=== PATIENT | male | born 1945 | race Caucasian/White ===

== ENCOUNTER 2016-10-29 07:58 | Day surgery (SDC) | payer MEDICARE ==
[~2016-10-29 07:58] MED LIST: IV START KIT ONE; SODIUM CHLORIDE 0.9% 1,000 ML ONE
[2016-10-29] MEDS ORDERED: CIPROFLOXACIN IV 400 MG 200 ML IV PRN (08:00)
[2016-10-29] MEDS ORDERED: GENTAMICIN SULFATE 320 MG in SODIUM CHLORIDE 0.9% 100 ML IV PRN (08:00)
[2016-10-29] MEDS ORDERED: BUPIVACAINE 0.5% (PRES FREE) 30 ML VIAL ONE (09:35)
[2016-10-29] MEDS ORDERED: SPINAL PROCEDURAL TRAY 1 EACH ONE (09:42)
[2016-10-29] MEDS ORDERED: BUPIVACAINE 0.75% SPINAL AMPUL 2 ML ONE (09:42)
[2016-10-29] MEDS ORDERED: LABETALOL HCL 5 MG/ML 20ML VIAL IV PRN (10:25)
[2016-10-29] MEDS ORDERED: NALOXONE HCL 0.4 MG/ML VIAL IV PRN ×2 (10:25→11:33)
[2016-10-29] MEDS ORDERED: ATROPINE SULFATE 0.4 MG/1 ML VIAL IV PRN ×2 (10:25→11:33)
[2016-10-29] MEDS ORDERED: ONDANSETRON 4 MG/2ML 2 ML VIAL IV PRN ×3 (10:25→11:33)
[2016-10-29] MEDS ORDERED: MEPERIDINE 25 MG/ML SYRINGE IV PRN ×2 (10:25→11:33)
[2016-10-29] MEDS ORDERED: PROMETHAZINE HCL 25 MG/ML VIAL IM PRN ×2 (10:25→11:33)
[2016-10-29] MEDS ORDERED: MORPHINE SULFATE 4 MG/ML SYRINGE IV PRN ×2 (10:25→11:33)
[2016-10-29] MEDS ORDERED: LACTATED RINGERS 1,000 ML IV SCH ×2 (10:30→11:45)
[2016-10-29] MEDS ORDERED: LACTATED RINGERS 1,000 ML ONE (10:52)
[2016-10-29] MEDS ORDERED: MORPHINE SULFATE 2 MG/ML SYRINGE IV PRN (11:31)
[2016-10-29] MEDS ORDERED: HYDROCODONE/ACETAMINOPHEN 5/325MG TABLET PO PRN (11:31)
[2016-10-29] MEDS ORDERED: HYDRALAZINE HCL 20 MG/1 ML VIAL IV PRN (11:33)
[2016-10-29] MEDS ORDERED: SIMETHICONE 80 MG TAB.CHEW PO ONE (13:25)
--- NOTE | 2016-10-29 13:31 | OP ---
MARGIE GALINDO [id number] DATE OF OPERATION: October 29, 2016 SURGEON: Lewis Valdivia M.D. PRESIDENT OF THE [place]: None. ANESTHESIA: Spinal. PREOPERATIVE DIAGNOSES: 1. Neuropathic detrusor dysfunction with urinary retention. 2. Acute renal failure. 3. History of urosepsis. POSTOPERATIVE DIAGNOSES: 1. Neuropathic detrusor dysfunction with urinary retention. 2. Acute renal failure. 3. History of urosepsis PROCEDURES: 1. CYSTOSCOPY. 2. CYSTOTOMY. 3. SUPRAPUBIC CYSTOSTOMY TUBE DRAINAGE. SPECIMENS: None. INDICATIONS: A 71-year-old man with a history of urosepsis in May of 2016 at which time two liters of retained urine was found with bilateral hydronephrosis and acute renal failure. His condition improved with antibiotics and a Coyne catheter. He has a long antecedent history of lower urinary tract symptoms. At cystoscopy, a 3.5 cm, at least, bladder outlet obstruction on the basis of prostatic enlargement was identified with at least a mild degree of trabeculation of the bladder wall. He failed voiding trials and intermittent self-catheterization also failed, and he ended up having to be re-catheterized. Urodynamic studies at that point confirmed probable neuropathic detrusor dysfunction as well as the presence of moderate to high grade bilateral vesicoureteral reflux. He presents now for cystostomy tube placement. FINDINGS: The urethra is notable for irritation from an indwelling Coyne catheter. Prostatic fossa is 3.5 to 4 cm in length and obstructed anatomically. Bladder neck is mildly elevated. The bladder wall itself is notable for expected edema and erythema of the posterior wall in contact with the Coyne catheter. The bladder wall was mildly to moderately trabeculated without other focal lesions. PROCEDURE: The patient was identified and brought to the operating room where spinal anesthetic was applied and was placed in a dorsal lithotomy position. Through his Coyne catheter, we irrigated the bladder with diluted Betadine solution, and left some in the bladder as we removed the Coyne catheter. Then, the lower abdomen and genital region were prepped and draped sterilely. A 17-Bermudian cystoscope was introduced with saline as an irrigant. Findings were reported above. We used the scope to overdistend the bladder as we placed the patient in Trendelenburg position. A site 2 cm above the pubic brim in the midline was anesthetized with 0.5% Marcaine and opened with a stab incision. Through this, we passed a large spinal type needle with a stylet and accessed the high anterior wall of the bladder under direct vision. Through the needle, we passed a floppy tip wire and directed it down the shaft of the cystoscope and out the urethra. The cystoscope itself was withdrawn. Next, over the wire, after the needle, was removed, we passed a long chinchilla catheter, and then progressively dilated up to 26 B[place]ian using Amplatz type dilators. The largest one in place, we confirmed that it was actually in the bladder with the cystoscope, and then we removed the final dilator and placed a 22-Bermudian [place] type catheter over the long chinchilla into the bladder. The balloon was inflated with 10 mL of water, and the wire and long chinchilla catheter were removed. Cystoscopy was repeated to confirm the presence of the catheter tip and balloon in the bladder. Finally, we irrigated the catheter and found minimal bleeding. The catheter was secured at the level of the skin with #2-0 nylon and left to gravity drainage. Estimated blood loss less than 20 mL. No early complications. Patient tolerated the procedure well and was taken in stable condition to the post anesthesia room. cc: Lewis Valdivia M.D. Allan Biggs M.D.
[2016-10-29] MEDS ORDERED: MORPHINE SULFATE 2 MG/ML SYRINGE ONE (14:42)
[2016-10-29] MEDS ORDERED: HYDROCODONE/ACETAMINOPHEN 5/325MG TABLET ONE (15:35)
== END 2016-10-29 16:32 | disposition home or self-care (01) ==
LOC: SDC 07:58
PROVIDERS: ATTEND Urology
DX: N31.9 Neuromuscular dysfunction of bladder, unspecified (principal); R33.9 Retention of urine, unspecified; N17.9 Acute kidney failure, unspecified; E11.9 Type 2 diabetes mellitus without complications; I10 Essential (primary) hypertension; E78.00 Pure hypercholesterolemia, unspecified; F17.290 Nicotine dependence, other tobacco product, uncomplicated
CPT/HCPCS: 51040; J0744; J1580; J2270; A9270 ×2; J7120; J7030; J7050